=== PATIENT | male | born 1950 | race Caucasian/White ===

== ENCOUNTER → 2018-05-25 | Outpatient (CLI) | payer MEDICARE ==
[~2018-05-25] MED LIST: RISE35TA3 PO
--- NOTE | 2018-05-25 17:25 | RAD ---
CHEST PA LATERAL Clinical indications: cough, fever COMPARISON: None available. Findings: Left lung base infiltrate or atelectasis is seen. Right lung field is clear. No pleural effusion or pneumothorax is seen. The heart size, pulmonary vasculature, mediastinum and both justine are unremarkable. The osseous structures appear intact. Impression: Left lung base infiltrate or atelectasis. Electronically signed by: Cabrera Wall MD (05/25/2018 5:22 PM) [place] [id number]
== END | disposition home or self-care (01) ==
LOC: PMG 14:59
PROVIDERS: ATTEND Physician Assistant
DX: R05 Cough (principal)
CPT/HCPCS: 71046

== ENCOUNTER → 2019-05-09 | Outpatient (CLI) | payer MEDICARE ==
--- NOTE | 2019-05-09 10:59 | RAD ---
EXAM: CAROTID DOPPLER SONOGRAM. HISTORY: Vision changes, hypertension. TECHNIQUE: Oscar scale and color Doppler sonographic evaluation of the neck with spectral waveform analysis was performed and static images are submitted for review. FINDINGS: RIGHT: The peak systolic velocity within the common carotid artery is 52 cm/sec. The peak systolic velocity within the internal carotid artery is 70 cm/sec and the end diastolic velocity within the internal carotid artery is 26 cm/sec. The ICA/CCA ratio is 1.4. Grayscale images demonstrate calcified plaquing without grayscale stenosis. LEFT: The peak systolic velocity within the common carotid artery is 89 cm/sec. The peak systolic velocity within the internal carotid artery is 73 cm/sec and the end diastolic velocity within the internal carotid artery is 30 cm/sec. The ICA/CCA ratio is 0.8. Grayscale images demonstrate calcified plaquing without grayscale stenosis. There is antegrade flow within both vertebral arteries. IMPRESSION: 1. No evidence of hemodynamically significant stenosis. PQRS Compliance Statement - Stenosis calculations for CT, MR and conventional angiography are based upon measurement of the distal ICA diameter in accordance with the NASCET methodology. Stenosis calculations for carotid ultrasound studies are derived from validated velocity criteria which are known to correlate with the NASCET methodology. Electronically signed by: Ro Carolina MD (05/09/2019 10:57 AM) [facility]
== END | disposition home or self-care (01) ==
LOC: US 08:52
PROVIDERS: ATTEND Physician Assistant
DX: I65.23 Occlusion and stenosis of bilateral carotid arteries (principal); H53.8 Other visual disturbances; I10 Essential (primary) hypertension
CPT/HCPCS: 93880

== ENCOUNTER → 2020-04-03 | Outpatient (CLI) | payer MEDICARE ==
--- NOTE | 2020-04-03 15:38 | RAD ---
5 views lumbar spine without comparison for back pain. FINDINGS: There is straightening of the normal lumbar lordosis. There are multilevel degenerative changes, most notable as disc space narrowing at L2-3, L4-5, and L5-S1. Facet arthrosis is seen on L4-5 in particular. Vascular calcification are evident. IMPRESSION: 1. No acute osseous abnormality. 2. Multilevel degenerative changes. Electronically signed by: Jesse Osorio MD (04/03/2020 3:35 PM) [id number]
== END ==
LOC: RAD 14:58
PROVIDERS: ATTEND Physician Assistant
DX: M47.817 Spondylosis without myelopathy or radiculopathy, lumbosacral region (principal); M48.07 Spinal stenosis, lumbosacral region
CPT/HCPCS: 72110

== ENCOUNTER → 2021-10-15 | Outpatient (CLI) | payer MEDICARE ==
--- NOTE | 2021-10-15 17:52 | RAD ---
EXAM: XR L-SPINE BENDING ONLY 2-3 VIEWS 10/15/2021 10:25 AM CLINICAL INDICATION: Back pain COMPARISON: Lumbar spine radiograph 04/03/2020 TECHNIQUE: Standing lateral, flexion, extension views of the lumbar spine FINDINGS: There 5 nonrib-bearing lumbar vertebral bodies. No acute fracture. There is a 6 mm retroli sthesis of L2 on L3 and flexion, extension, and neutral position. There is 4 mm retrolisthesis of L3 on L4 and neutral, which decreases to 3 mm in flexion and resolves in extension. There is a 7 mm ante rolisthesis of L4 on L5 in extension only. Moderate disc space narrowing with anterior osteophytes, g reatest at L2-L3. IMPRESSION: 1. Unchanged degenerative disc disease. 2. 7 mm anterolisthesis of L4 on L5 seen in extension only. 3. 6 mm retrolisthesis of L2 on L3, unchanged between flexion and extension. 4. 4 mm retrolisthesis of L3 on L4 which slightly decreases in flexion and resolves in extension. Electronically signed by: Alvina Arora MD (10/15/2021 5:49 PM) [id number]
== END ==
LOC: RAD 09:37
PROVIDERS: ATTEND Neurological Surgery
DX: M51.36 Other intervertebral disc degeneration, lumbar region (principal); M43.16 Spondylolisthesis, lumbar region; M48.061 Spinal stenosis, lumbar region without neurogenic claudication; M25.78 Osteophyte, vertebrae
CPT/HCPCS: 72100